=== PATIENT | female | born 1985 ===

== ENCOUNTER 2016-06-18 16:51 | Emergency (ER) | payer MEDICAID | END 2016-06-18 18:45 | disposition home or self-care (01) | LOC: H.EROB2 16:51 | DX: O26.93 Pregnancy related conditions, unspecified, third trimester (principal); Z3A.28 28 weeks gestation of pregnancy; R10.2 Pelvic and perineal pain ==

== ENCOUNTER 2016-07-13 21:30 | Emergency (ER) | payer MEDICAID ==
[2016-07-13 22:48] VITALS: BMI 27.9
[2016-07-13] MEDS ORDERED: Lactated Ringer's 1,000 ML IV SCH (23:00)
[2016-07-13 23:13] LABS: RBC URINE 3 /hpf (0-3); URINE BACTERIA RARE (<OCC); URINE BILIRUBIN NEGATIVE (NEGATIVE); URINE BLOOD NEGATIVE (NEGATIVE); URINE COLOR YELLOW (YELLOW); URINE GLUCOSE (UA) NEG (Normal); URINE KETONE NEGATIVE (NEGATIVE); URINE LEUKOCYTE ESTERASE SMALL Leu/uL (Negative); URINE PROTEIN NEGATIVE (NEGATIVE); URINE UROBILINOGEN 0.2-1.0 mg/dL (0.2-1.0); WBC URINE < 1 /hpf (0-5)
--- NOTE | 2016-07-13 23:42 | US ---
EXAM: US After First Trimester, Transabdominal CLINICAL HISTORY: 31 years old, female; Signs and symptoms; Lmp or gestational age (in weeks): 12/14/15; Antepartum complications; Other: Dec movement; ; Additional info: Decreased movments, h/o placenta previa TECHNIQUE: Real-time transabdominal obstetrical ultrasound of the maternal pelvis and a second or third trimester with image documentation. COMPARISON: No relevant prior studies available. FINDINGS: Fetus: Single live intrauterine gestation. Heart rate: heart rate of 146 beats per minute. Presentation: Cephalic. Placenta: Posterior. No placenta previa or abruption. Amniotic fluid: Normal. EMERSON = 10.5 cm. Anatomy: No gross anomaly is appreciated. BIOMETRICS Gestational age by US: Estimated gestational age of 32 weeks 4 days by measurements. EFW: Estimated weight of 1949 g. BPD: 8.2 cm, correlating with 32 weeks 6 days. HC: 29.7 cm, correlating with 32 weeks 6 days. AC: 27.8 cm, correlating with 31 weeks 6 days. FL: 6.4 cm, correlating with 32 weeks 6 days. MATERNAL: Uterus: Unremarkable. No myometrial mass. Cervix: No cervical dilatation or effacement. Free fluid: No free fluid. IMPRESSION: 1. Single live intrauterine gestation. 2. Incidental/non-acute findings are described above.
== END 2016-07-13 23:58 | disposition home or self-care (01) ==
LOC: H.EROB2 21:30
DX: O47.03 False labor before 37 completed weeks of gestation, third trimester (principal); Z3A.32 32 weeks gestation of pregnancy; O09.33 Supervision of pregnancy with insufficient antenatal care, third trimester; O44.03 Complete placenta previa NOS or without hemorrhage, third trimester

== ENCOUNTER 2016-07-29 15:23 | Emergency (ER) | payer MEDICAID ==
--- NOTE | 2016-07-29 16:08 | OBHP ---
Datetime: 07/13/2016 22:58 IP Adm Impression: , intrauterine IP Admit Plan: Observation/Evaluation Admit Comment, IP Provider: 30 YO F SABx1 @ 32.5 weeks w/ complete Grade 4 placenta previa in a previous U/S from 05/11/16 presents to the [facility] for decreased movments and new onset of b/l pel anuj pain /10, pressure like sharp in characteristic. - PT had a late start on care starting at 28 weeks - Denies LOF/VB/CTX -PMH: Hypothyroidism, Migrains. Post uterine fibroid POBHX: 2 , First child was . 1 TOP. PSH: Right foot metal plate SocHx: Smokes 2 cigg a week Meds: PNV, Synthroid 25mcg Allergies: NKDA - PPD +ve, X ray: wNL A:30 YO F SABx1 @ 32.5 weeks presents with decrease movments since afternoon and b/l pe lvic pain. P: - Lactated Ringers 1 L fluid - Continuous monitoring - OB limited U/S: EMERSON, Cervical length, R/O abruption of the placenta. - CBC. Type and screen - Counseled patient on smoking and explained the side effects on patients health and [facility] . Sushant Rios PGY-1 OB[facility] ADDENDUM: Pt seen _ examined by me. s: bilateral lower quadrant pain; denies ctxs, vag bleeding, abd trauma or pprom o: official us- posterior plac, previa not visualized. no evidence of abruption cephalic; emerson 10.5 ega 32.4wk; "no cervical dilation/effacement" i:32.4wk Abd pain most likely 2ndary to position p: d/c home ptl precautions f/u for ob appt as sched on 07/14 needs f/u appt for emerson check and confirm of plac previa resolution as above. Abdomen - PN: Normal Lungs - PN: Normal Heart - PN: Normal General - PN: Normal FHR - Baseline A Provider: 145 Contraction Comments Provider: IRREG every 10 min Comments, ACOG Physical Exam: abdomen: nt to palpation at site of discomfort Bedside US: vertex with back on maternal left EGA AdmitDate IP: 32.5 Vital Signs Provider: Reviewed; Within Normal Limits IP Chief Complaint: Maternal discomfort NICHD Variability Prov Fetus A: Moderate 6-25bpm NICHD Accel Fetus A IP Provider: 15X15 FHR Category Provider Fetus A: Category I NICHD Decel Fetus A IP Provider: None Datetime: 06/18/2016 17:20 IP Chief Complaint Other: lower pelvic pressure and bump on labia Pelvic Type - PN: Adequate Extremities - PN: Normal Back - PN: Normal Thyroid - PN: Normal Neurologic - PN: Normal HEENT - PN: Normal Gestation - Est Wks by US: 28.4 Dilatation, Provider: 0 Effacement, Provider: thick Station, Provider: high Genitourinary Exam: Normal DTRs - PN: Normal
== END 2016-07-29 17:30 | disposition home or self-care (01) ==
LOC: H.EROB2 15:23
DX: O47.03 False labor before 37 completed weeks of gestation, third trimester (principal); Z3A.32 32 weeks gestation of pregnancy; O44.03 Complete placenta previa NOS or without hemorrhage, third trimester; O09.33 Supervision of pregnancy with insufficient antenatal care, third trimester

== ENCOUNTER 2016-08-27 16:24 | Emergency (ER) | payer MEDICAID ==
--- NOTE | 2016-08-27 16:29 | OBHP ---
Datetime: 07/29/2016 16:36 IP Adm Impression: , intrauterine IP Admit Plan: Observation/Evaluation Pelvic Type - PN: Adequate Extremities - PN: Normal Abdomen - PN: Normal Back - PN: Normal Breast - PN: Normal Lungs - PN: Normal Heart - PN: Normal Thyroid - PN: Normal Neurologic - PN: Normal HEENT - PN: Normal General - PN: Normal Membranes, Provider: Intact IP Hx Assessment: The History has been Reviewed and is Current EGA AdmitDate IP: 35.0 Vital Signs Provider: Reviewed; Within Normal Limits IP Chief Complaint: Decreased movement; Maternal discomfort Dilatation, Provider: fingertip Genitourinary Exam: Normal DTRs - PN: Normal Datetime: 06/18/2016 17:20 Admit Comment, IP Provider: 30 yr at 28.4 wks GA by 1st tri US at [facility] on 01/26/16, hypoth yroid, no care, presents to [facility] with complaint of mild lower pelvic pressure and a "bump" o n her right labia when she was shaving today. Denies vaginal bleeding, LOF, ctx's, dysuria, hematuria , vaginal pruruitus. + movement. First appointment scheduled for tomorrow at [facility] (pt reports no prior care due to insurance problems) . Patient has no concerns or compla ints at this time. care/course: no care yet, 1st tri US at [facility] on 01/26/16: CRL consistent with dates of 8wks GA OBHx: at [facility] x 2 (2002,2003), 1 x TOP PMHx: Hypothyroidism, Migraines SurgHx: right foot metal plate SocHx: current smoker 4cig /week x 9yrs, denies Etoh/drugs Meds: PNV, Synthroid 25mcg Allergies: NKDA Assessment: 28 weeks gestational age with no obstetrical issues at this time. Patient incidentally found to davalos ve a yeast infection. Maternal well-being and well-being reassuring at this time. Plan: Prescription for Terazol. Patient given contact information for clinic to start care. All questions answered. Patient discharged home.
[2016-08-27 17:23] VITALS: BMI 28.7
--- NOTE | 2016-08-27 17:36 | OBHP ---
Datetime: 08/27/2016 17:30 IP Adm Impression: Term, intrauterine ; No Active Labor; Intact Membranes IP Admit Plan: Observation/Evaluation; Discharge home Admit Comment, IP Provider: 31-year-old at 38.4 weeks gestational age presents to the ED com plaining of pelvic discomfort and pressure. Patient denies any contractions, vaginal bleeding, leakag e of fluids. Patient reports good movement. Patient denies any dysuria, nausea vomiting, headac hes, fevers or chills, diarrhea or constipation. Otherwise, patient without complaints. yanci rds reviewed. Past medical history hypothyroidism Past surgical history ankle surgery Medications vitamins, Synthroid No known drug allergies Obstetrical history full-term normal spontaneous vaginal delivery 1, 36 week normal spontaneous vaginal delivery, first trimester loss of 1. Social history patient admits tobacco smoking throughout , no alcohol, recent history of THC use, patient reports she is currently in program. Physical exam: Referred physical exam findings Assessment: 31-year-old at 38 weeks gestational age. No evidence of labor at this time. Maternal well -being and well-being reassuring at this time. Plan: Check urinalysis If urinalysis negative and heart tracing remains reassuring, plan to DC home with labor prec autions and patient will follow up with clinic as already scheduled Pelvic Type - PN: Adequate Extremities - PN: Normal Abdomen - PN: Normal Back - PN: Normal Breast - PN: Normal Lungs - PN: Normal Heart - PN: Normal Thyroid - PN: Normal Neurologic - PN: Normal HEENT - PN: Normal General - PN: Normal Membranes, Provider: Intact Contraction Comments Provider: occasional Comments, ACOG Physical Exam: Cervix: Fingertip, long, high No blood, fluid, discharge Abdomen soft, nontender, nondistended, gravid No rebound, no guarding, no CVA tenderness bilaterally. Pool Provider: Negative IP Hx Assessment: The History has been Reviewed and is Current EGA AdmitDate IP: 38.4 Vital Signs Provider: Reviewed; Within Normal Limits IP Chief Complaint: Maternal discomfort Dilatation, Provider: FT Effacement, Provider: long Station, Provider: high Genitourinary Exam: Normal DTRs - PN: Normal
[2016-08-27 18:50] LABS: SQUAMOUS EPITHIAL 16 /hpf (0-5); URINE BACTERIA RARE (<OCC); URINE BILIRUBIN NEGATIVE (NEGATIVE); URINE BLOOD NEGATIVE (NEGATIVE); URINE CLARITY SLIGHTY-CLOUDY (Clear); URINE COLOR YELLOW (YELLOW); URINE GLUCOSE (UA) NEG (Normal); URINE LEUKOCYTE ESTERASE NEG Leu/uL (Negative); URINE NITRATE NEGATIVE (NEGATIVE); URINE PROTEIN NEGATIVE (NEGATIVE); URINE UROBILINOGEN 0.2-1.0 mg/dL (0.2-1.0)
== END 2016-08-27 19:40 | disposition home or self-care (01) ==
LOC: H.EROB2 16:24
DX: O47.1 False labor at or after 37 completed weeks of gestation (principal); Z3A.38 38 weeks gestation of pregnancy; O09.291 Supervision of pregnancy with other poor reproductive or obstetric history, first trimester

== ENCOUNTER 2016-08-31 14:44 | Emergency (ER) | payer MEDICAID ==
[2016-08-31 16:18] VITALS: BMI 27.1
[2016-08-31 18:05] LABS: BARBITURATES, UR NEGATIVE (NEGATIVE); BENZODIAZEPINES, UR NEGATIVE (NEGATIVE); OPIATES, UR NEGATIVE (NEGATIVE); PHENCYCLIDINE, UR NEGATIVE (NEGATIVE)
--- NOTE | 2016-08-31 20:04 | OBHP ---
Datetime: 08/31/2016 16:26 IP Adm Impression: Term, intrauterine ; No Active Labor IP Admit Plan: Observation/Evaluation Admit Comment, IP Provider: This is a 31 y/o wth 39 weeks GA, ALEXANDREA 09/07/16 by 8 week US, pre sentng for decreased movement since 2 weeks ago. GBS-POSITIVE. Pt started PNC while in third tr imester at [facility] in [facility]. Pt denes ROM, vagnal bleeding, dysura or CTX's. NKDA. Medications: Synthrod 50 mcg. (increased form 25 mcg on 07/28/16) PMHx: hypothyrodism PSH: left ankle surgery in 2012. OBHx: , 2 vagnal delveres, 1 sp. . 1st delivery was pre-term at 36 weeks due to de creased amniotic fluid. Intramural Director: Gonorrhea infection during 1st . SHx: Pt smokes 1-2 cigarettes a week, NO alcohol, last THC use on March this year. (on 07/08/16 , urine showed presence of THC). Pt currently lives alone. A_P: IUP at 41 weeks GA. Biophysical profile will be ordered. Urine toxcology screen ordered. Pt will be observed. Koko Mcwilliams PGY-1. OBH ADDENDUM: pt seen _ examined by me with dr. mcwilliams. Agree with above with following additions andmodific ations. Pt's edc established by 8wk us. She began pnc @ 30wk. DYFS is involved and pt has undergon e weekly uds with current preg. She presents today w/ c/o decreased fm for 2wks. she denies labor , ctxs, srom or bleeding. Pelvic Type - PN: Adequate Extremities - PN: Normal Abdomen - PN: Normal Back - PN: Normal Breast - PN: Normal Lungs - PN: Normal Heart - PN: Normal Thyroid - PN: Normal Neurologic - PN: Normal HEENT - PN: Normal General - PN: Normal FHR - Baseline A Provider: 140 Membranes, Provider: Intact Gestation - Est Wks by US: 41.0 Pool Provider: Negative EGA AdmitDate IP: 39.1 Vital Signs Provider: Reviewed; Within Normal Limits IP Chief Complaint: Decreased movement NICHD Variability Prov Fetus A: Moderate 6-25bpm NICHD Accel Fetus A IP Provider: 15X15 FHR Category Provider Fetus A: Category I NICHD Decel Fetus A IP Provider: None Dilatation, Provider: 2 cm Effacement, Provider: 30 Station, Provider: -3 Genitourinary Exam: Normal DTRs - PN: Normal
--- NOTE | 2016-09-01 10:36 | US ---
PROCEDURE: Biophysical profile HISTORY: Decreased Movement COMPARISON: 07/13/2016. TECHNIQUE: Standard protocol for this study/examination. FINDINGS: FINDINGS: Biophysical profile score 8/8 Based on the followin. breathing movements: 2/2 2. Gross body movement: 2/2 3. tone: 2/2 4. Qualitative amniotic fluid index: 2/2 heart rate 142 beats per minute. Closed cervix 4 cm. IMPRESSION: Biophysical profile score 8/8. Amniotic fluid index 15.3. Concordant results (preliminary interpretation) provided by [facility]. Procedure Completed: 19:03 Preliminary ([facility]) Report: Dictated and Authenticated: 20:21 Final Interpretation: 10:34. September 01, 2016.
== END 2016-08-31 21:00 | disposition home or self-care (01) ==
LOC: H.EROB2 14:44
DX: O47.1 False labor at or after 37 completed weeks of gestation (principal); Z3A.39 39 weeks gestation of pregnancy; O09.33 Supervision of pregnancy with insufficient antenatal care, third trimester; O09.213 Supervision of pregnancy with history of pre-term labor, third trimester

== ENCOUNTER 2016-09-03 06:47 | Inpatient (IN) | payer MEDICAID ==
[2016-09-03] MEDS: Lactated Ringer's 2,000 ML IV ONE ×3 (07:55→09:00)
[2016-09-03] MEDS ORDERED: Ampicillin 2 GM in Sodium Chloride 0.9% 100 ML IVPB STA (07:57)
[2016-09-03 07:58] VITALS: BMI 28.8
[2016-09-03] MEDS ORDERED: AMPicillin 1 GM in Sodium Chloride 0.9% 100 ML IVPB SCH (08:00)
[2016-09-03 08:44] LABS: BASO # 0.1 K/uL (0.0-0.2); BASO % 0.6 % (0.0-2.0); EOS # 0.1 K/uL (0.0-0.7); EOS % 1.3 % (0.0-4.0); LYMPH # 2.6 K/uL (1.0-4.3); LYMPH % 27.5 % (20.0-40.0); MEAN CELL VOLUME 83.8 fl (81.0-99.0); MEAN CORPUSCULAR HGB CONC 33.4 g/dL (33.0-37.0); MEAN PLATELET VOLUME 10.6 fl (7.2-11.7); MONO # 0.6 K/uL (0.0-0.8); MONO % 6.3 % (0.0-10.0); NEUT # 6.1 K/uL (1.8-7.0); NEUT % 64.3 % (50.0-75.0); NRBC % 0.1 % (0.0-0.0); RBC 3.95 Mil/uL (3.80-5.20); RED CELL DISTRIBUTION WIDTH 13.9 % (11.5-14.5); WHITE BLOOD COUNT 9.4 K/uL (4.8-10.8)
[2016-09-03] MEDS ORDERED: Pneumococcal 23-Valent Vaccine IM ONE (08:45)
[2016-09-03 08:47] VITALS: BP 127/90; PULSE 74; RESP 18; TEMP 98
[2016-09-03] MEDS ORDERED: Penicillin G 5 Million Unit Vial IVPB ONE ×2 (08:57→12:54)
[2016-09-03 09:02] LABS: BARBITURATES, UR NEGATIVE (NEGATIVE); BENZODIAZEPINES, UR NEGATIVE (NEGATIVE); OPIATES, UR NEGATIVE (NEGATIVE); PHENCYCLIDINE, UR NEGATIVE (NEGATIVE)
[2016-09-03] MEDS ORDERED: Fentanyl/Bupivacaine HCl 250 ML EPI ONE (09:20)
[2016-09-03] MEDS: Lactated Ringer's 1,000 ML IV SCH ×2 (11:00→19:30)
--- NOTE | 2016-09-03 16:26 | OBADHP ---
Datetime: 09/03/2016 16:23 Admit Comment, IP Provider: late entry This is a 31 y/o wth 39.4 weeks GA, ALEXANDREA 09/07/16 by 8 week US, presenting for suspected RO M carter 4:49 AM. Pt complains of pelvic CTX every 10-15 minutes and 7-8/10 intensity. GBS-POSITIVE. Pt started PNC while in third trimester at [facility] in [facility]. Pt denes ROM, vagnal bleedi ng, dysura or CTX's. NKDA. Medications: Synthrod 50 mcg. (increased form 25 mcg on 07/28/16) PMHx: hypothyrodism PSH: left ankle surgery in 2012. OBHx: , 2 vagnal deliveries, 1 sp. . 1st delivery was pre-term at 36 weeks due to decreased amniotic fluid. Cadd Technician: Gonorrhea infection during 1st . SHx: Pt smokes 1-2 cigarettes a week, NO alcohol, last THC use on March this year. (on 07/08/16 , urine showed presence of THC). Pt currently lives alone. A_P: Pt will be admitted. Labor protocol will be initiated. GBS positive. Ampicillin prophylaxis will be started. OBH ADDENDUM: pt seen _ examined by me. agree with above assessment and plan with following change- will rx pcn g for gbs prophylaxis I: 39.4wks Labor GBS+ DYFS involved P: expectant VD Datetime: 09/03/2016 08:10 Pelvic Type - PN: Adequate Extremities - PN: Normal Lungs - PN: Normal Heart - PN: Normal Thyroid - PN: Normal Neurologic - PN: Normal HEENT - PN: Normal General - PN: Normal FHR - Baseline A Provider: 150 Amniotic Fluid Color, Provider: Clear Membranes, Provider: Ruptured Comments, ACOG Physical Exam: urine drug screen neg on 08/31 Pool Provider: Positive Nitrazine Provider: Positive IP Chief Complaint: Suspected ruptured membranes NICHD Variability Prov Fetus A: Moderate 6-25bpm NICHD Accel Fetus A IP Provider: 15X15 FHR Category Provider Fetus A: Category I Dilatation, Provider: 2 Genitourinary Exam: Normal EGA AdmitDate IP: 39.4 IP Adm Impression: Term, intrauterine IP Admit Plan: Admit to unit; Initiate labor protocol Datetime: 08/31/2016 16:26 Abdomen - PN: Normal Back - PN: Normal Breast - PN: Normal Gestation - Est Wks by US: 41.0 Vital Signs Provider: Reviewed; Within Normal Limits NICHD Decel Fetus A IP Provider: None Effacement, Provider: 30 Station, Provider: -3 DTRs - PN: Normal Datetime: 08/27/2016 17:30 Contraction Comments Provider: occasional IP Hx Assessment: The History has been Reviewed and is Current Datetime: 06/18/2016 17:20 IP Chief Complaint Other: lower pelvic pressure and bump on labia
[2016-09-03] MEDS ORDERED: Oxytocin 30 units/LR 500ML 30 U/500 ML BAG IV ONE ×2 (16:39→21:00)
[2016-09-03] MEDS ORDERED: Oxytocin 30 units/LR 500ML 30 U/500 ML BAG IV SCH (16:45)
[2016-09-03] MEDS ORDERED: Oxycodone/Acetaminophen 5/325 mg Tab PO PRN (23:43)
[2016-09-04] MEDS ORDERED: Oxycodone/Acetaminophen 5/325 mg Tab PO PRN (00:52)
[2016-09-04] MEDS ORDERED: TDAP Vaccine 0.5 mL Syr IM ONE (06:30)
[2016-09-04] MEDS: Levothyroxine 25 MCG TAB PO SCH (06:44)
[2016-09-04 07:24] LABS: BASO # 0.1 K/uL (0.0-0.2); BASO % 0.3 % (0.0-2.0); EOS % 0.2 % (0.0-4.0); HEMOGLOBIN 9.8 g/dL (12.0-16.0); LYMPH # 2.3 K/uL (1.0-4.3); LYMPH % 11.3 % (20.0-40.0); MEAN CELL VOLUME 84.1 fl (81.0-99.0); MEAN CORPUSCULAR HEMOGLOBIN 27.4 pg (27.0-31.0); MEAN CORPUSCULAR HGB CONC 32.6 g/dL (33.0-37.0); MEAN PLATELET VOLUME 10.6 fl (7.2-11.7); MONO # 0.9 K/uL (0.0-0.8); MONO % 4.3 % (0.0-10.0); NEUT # 17.1 K/uL (1.8-7.0); NEUT % 83.9 % (50.0-75.0); RBC 3.57 Mil/uL (3.80-5.20); RED CELL DISTRIBUTION WIDTH 13.3 % (11.5-14.5); WHITE BLOOD COUNT 20.4 K/uL (4.8-10.8)
[2016-09-04] MEDS ORDERED: Simethicone 80 mg Chewtab PO PRN (07:55)
[2016-09-04] MEDS ORDERED: Pneumococcal 23-Valent Vaccine IM ONE (08:45)
--- NOTE | 2016-09-04 13:54 | OBPPN ---
Datetime: 09/04/2016 08:42 PP Pain Prov: Within normal limits PP Nausea Prov: Denies PP Flatus Prov: Yes PP BM Prov: No PP Heart Prov: Normal PP Lungs Prov: Normal PP Abdomen/Uterus Prov: Normal PP Lochia Prov: Normal PP Vulva/Perineum Prov: Normal PP CVA Tenderness Prov: Normal PP Extremities Prov: Normal PP Impression Prov: Normal progression PP Plan Prov: Continue present management PP Progress Note Prov: 31 y/o now seen and examined at bedside.Pt reports pain is controlled w ith pain medications. tolerating po diet well. denies nausea, vomiting, fever, chills or calf pain. assessement: 31 yo s/p , PPD#1 hypothyroidism Plan: percocet and ibuprofen for pain management continue levothyroixine 25 microgram daily Encourage and ambulatory Anticipate discharge tomorrow Addendum by Dr. Thakkar: Patient evaluated independently and I agree with the above. Patient is stab le, continue current orders Sultan Gonzalez, PGY1 Vital Signs Provider PP: Reviewed
--- NOTE | 2016-09-04 16:38 | CP.PCM.PN ---
Subjective - Date & Time of Evaluation Date of Evaluation: 09/04/16 Time of Evaluation: 16:21 - Subjective Subjective: The patient is one day post , with placement of epidural catheter for labor pain relief. At the time it was noted that dura was punctured. The patient was advised to inform the anesthesiologist on duty if headache develops. The patient was evaluated and was confirmed to have spinal headache. Blood was offered and after informing the patient of risks and benefits autologous blood patching was performed by Dr. Correia and the undesigned together with the assigned nurse. The procedure was performed under sterile condition. Sixteen ml. of autologous blood was given through the in-situ epidural catheter.Procedure was tolerated. Will follow. Objective - Vital Signs/Intake and Output Vital Signs (last 24 hours): Temp Pulse Resp BP Pulse Ox 98 F 74 18 127/90 09/03/16 08:46 09/03/16 08:46 09/03/16 08:46 09/03/16 08:46 - Medications Medications: Current Medications Acetaminophen (Tylenol 325mg Tab) 650 mg PO Q4 PRN PRN Reason: Headache Last Admin: 09/04/16 04:00 Dose: 650 mg Docusate Sodium (Colace) 100 mg PO BID [facility] Last Admin: 09/04/16 09:18 Dose: 100 mg Ibuprofen (Motrin Tab) 600 mg PO Q6 PRN PRN Reason: Pain, Mild (1-3) Last Admin: 09/04/16 14:24 Dose: 600 mg Levothyroxine Sodium (Synthroid) 25 mcg PO DAILY@0630 [facility] Last Admin: 09/04/16 06:44 Dose: 25 mcg Oxycodone/Acetaminophen (Percocet 5/325 Mg Tab) 1 tab PO Q4 PRN PRN Reason: Pain, moderate (4-7) Stop: 09/06/16 23:44 Senna/Docusate Sodium (Senokot S 50 Mg-8.6 Mg) 1 tab PO HS [facility] Simethicone (Mylicon Chew Tab) 80 mg PO TID PRN PRN Reason: Flatulence Last Admin: 09/04/16 09:19 Dose: 80 mg - Labs Labs: 09/04/16 06:10
[2016-09-04] MEDS ORDERED: Docusate-Senna 50 mg-8.6 mg Tab PO SCH (22:00)
[2016-09-05] MEDS: Levothyroxine 25 MCG TAB PO SCH (06:30)
--- NOTE | 2016-09-05 17:21 | CP.PCM.PN ---
Subjective - Date & Time of Evaluation Date of Evaluation: 09/05/16 Time of Evaluation: 17:05 - Subjective Subjective: Asked to evaluate patient for possible PDPHA. Patient is sitting at bedside and tending to the baby, but doesn't appear to be limited in any way due to pain. She complains of ears feeling like "popping." R/B/A of blood patch vs conservative therapy was discussed with the patient at length and she elected to go with conservative therapy. She was advised that if the headache is unrelenting and doesn't subside by Wednesday she may return to ER for blood patch at that time. Objective - Vital Signs/Intake and Output Vital Signs (last 24 hours): Temp Pulse Resp BP Pulse Ox 98 F 74 18 127/90 09/03/16 08:46 09/03/16 08:46 09/03/16 08:46 09/03/16 08:46 - Medications Medications: Current Medications Acetaminophen (Tylenol 325mg Tab) 650 mg PO Q4 PRN PRN Reason: Headache Last Admin: 09/05/16 02:45 Dose: 650 mg Docusate Sodium (Colace) 100 mg PO BID [facility] Last Admin: 09/04/16 16:31 Dose: 100 mg Ibuprofen (Motrin Tab) 600 mg PO Q6 PRN PRN Reason: Pain, Mild (1-3) Last Admin: 09/05/16 06:31 Dose: 600 mg Levothyroxine Sodium (Synthroid) 25 mcg PO DAILY@0630 [facility] Last Admin: 09/05/16 06:30 Dose: 25 mcg Oxycodone/Acetaminophen (Percocet 5/325 Mg Tab) 1 tab PO Q4 PRN PRN Reason: Pain, moderate (4-7) Stop: 09/06/16 23:44 Senna/Docusate Sodium (Senokot S 50 Mg-8.6 Mg) 1 tab PO HS [facility] Last Admin: 09/04/16 22:59 Dose: Not Given Simethicone (Mylicon Chew Tab) 80 mg PO TID PRN PRN Reason: Flatulence Last Admin: 09/04/16 09:19 Dose: 80 mg - Labs Labs: 09/04/16 06:10 Assessment and Plan (1) Abdominal pain during Assessment & Plan: 31 yo s/p under epidural. There was a questionable dura puncture and patient exhibits some signs of PDPHA. - continue conservative therapy - patient to go home and return for blood patch if necessary Status: Acute
--- NOTE | 2016-09-06 09:13 | OBPPN ---
Datetime: 09/05/2016 05:28 PP Pain Prov: Within normal limits PP Nausea Prov: Denies PP Flatus Prov: Yes PP BM Prov: Yes PP Heart Prov: Normal PP Lungs Prov: Normal PP Abdomen/Uterus Prov: Normal PP Lochia Prov: Normal PP Vulva/Perineum Prov: Normal PP CVA Tenderness Prov: Normal PP Extremities Prov: Normal PP Impression Prov: Normal progression PP Plan Prov: Discharge PP Progress Note Prov: 31 y/o now seen and examined at bedside.Pt reports pain is controlled w ith pain medications. Ambulating well w/o dizziness. Tolerating PO diet well. Lochia is less than men ses volume. Voiding freely with no blood noted. has +BM. denies nausea, vomiting, fever, chills or ca lf pain. assessement: 31 yo s/p , PPD#2 hypothyroidism Plan: Discharge to home today PNV 1 PO qdaily Ibuprofen 600 mg 1 tab po prn q6h for pain management, take with food. Continue levothyroixine 25 microgram daily Encourage and ambulatory Follow up at [facility] in 4-6 weeks. Sultan Lisa PGY1 Vital Signs Provider PP: Reviewed
== END 2016-09-05 18:35 | disposition home or self-care (01) | DRG 373 ==
LOC: H.EROB2 06:47 → H.EROB 06:47 → H.L&D 07:58 → H.EROB2 08:06 → H.OB/GYN 09-04 00:10
PROVIDERS: ADMIT Obstetrics & Gynecology Gynecology; ATTEND Obstetrics & Gynecology Gynecology
PROC: 10E0XZZ Delivery of Products of Conception, External Approach (ICD-10-PCS; principal; 2016-09-03)
PROC: 4A1HXCZ Monitoring of Products of Conception, Cardiac Rate, External Approach (ICD-10-PCS; 2016-09-03)
PROC: 3E0234Z Introduction of Serum, Toxoid and Vaccine into Muscle, Percutaneous Approach (ICD-10-PCS; 2016-09-04)
DX: O99.284 Endocrine, nutritional and metabolic diseases complicating childbirth (principal); E03.9 Hypothyroidism, unspecified; Z37.0 Single live birth; O89.4 Spinal and epidural anesthesia-induced headache during the puerperium; O99.824 Streptococcus B carrier state complicating childbirth; Z3A.39 39 weeks gestation of pregnancy; Z23 Encounter for immunization; Z87.891 Personal history of nicotine dependence

== ENCOUNTER 2017-05-31 18:29 | Emergency (ER) | payer MEDICAID ==
[2017-05-31 18:29] VITALS: BMI 28.8
[2017-05-31 18:36] VITALS: BP 136/86; PULSE 84; RESP 18; TEMP 97.7; O2SAT 99
== END 2017-05-31 20:00 | disposition left against medical advice (07) ==
LOC: H.ER 18:29
DX: Z02.89 Encounter for other administrative examinations (principal)

== ENCOUNTER 2017-10-06 15:54 | Emergency (ER) | payer MEDICAID ==
[2017-10-06 15:54] VITALS: BMI 28.8
[2017-10-06 15:59] VITALS: RESP 16
[2017-10-06] MEDS ORDERED: Sodium Chloride 0.9% 1,000 ML IV STA (16:36)
--- NOTE | 2017-10-06 16:50 | ED PDOC ---
HPI: Influenza Time Seen by Provider: 10/06/17 15:59 Chief Complaint: Flu-like Symptoms Chief Complaint (Provider): body aches and, sore throat History Per: Patient Exam Limitations: no limitations Onset/Duration Of Symptoms: Days (x2) Additional complaint(s):: Chapin Graves, a 32 year old female with past medical history of hypothyroidism, presents to the emergency room with body aches and pains, sore throat and feeling feverish onset 2 days ago. She reports intermittent nausea but denies vomiting or diarrhea. Patient states that she has not taken any medication for symptoms. No further medical complaints. PMD:Evin Jo Past Medical History Reviewed: Historical Data, Nursing Documentation, Vital Signs Vital Signs: Last Vital Signs Temp 98.3 F 10/06/17 15:58 Pulse 97 H 10/06/17 15:58 Resp 16 10/06/17 15:58 BP 136/84 10/06/17 15:58 Pulse Ox 98 10/06/17 15:58 - Medical History PMH: Hypothyroidism Denies: Back Problems - Surgical History Surgical History: No Surg Hx - Family History Family History: States: Unknown Family Hx - Immunization History Hx Tetanus Toxoid Vaccination: No Hx Influenza Vaccination: No Hx Pneumococcal Vaccination: No - Home Medications Home Medications: Ambulatory Orders Medication Instructions Recorded Vit Calc,Iron,Folic 1 each PO DAILY #30 tablet 01/26/16 [ Vitamins] Ibuprofen [Motrin Tab] 600 mg PO Q6 PRN #30 tab 09/05/16 Levothyroxine [Synthroid] 25 mcg PO DAILY@0630 #30 tab 09/05/16 Ibuprofen [Motrin] 600 mg PO Q6 #20 tab 10/06/17 - Allergies Allergies/Adverse Reactions: Allergies Allergy/AdvReac Type Severity Reaction Status Date / Time No Known Allergies Allergy Verified 10/06/17 15:58 Review of Systems ROS Statement: Except As Marked, All Systems Reviewed And Found Negative Constitutional: Positive for: Fever, Other (body aches and pains) ENT: Positive for: Throat Pain Gastrointestinal: Positive for: Nausea. Negative for: Vomiting, Diarrhea Physical Exam - Reviewed Nursing Documentation Reviewed: Yes Vital Signs Reviewed: Yes - Physical Exam Appears: Positive for: Non-toxic, No Acute Distress Head Exam: Positive for: ATRAUMATIC, NORMAL INSPECTION, NORMOCEPHALIC Skin: Positive for: Normal Color, Warm, DRY Eye Exam: Positive for: EOMI, Normal appearance, PERRL ENT: Positive for: Normal ENT Inspection Neck: Positive for: Normal, Painless ROM Cardiovascular/Chest: Positive for: Regular Rate, Rhythm Respiratory: Positive for: Normal Breath Sounds. Negative for: Respiratory Distress Gastrointestinal/Abdominal: Positive for: Normal Exam, Soft Back: Positive for: Normal Inspection Extremity: Positive for: Normal ROM (upper and lower) Neurologic/Psych: Positive for: Alert, Oriented Medical Decision Making Medical Decision Making: Time: 15:59 Initial Impression: body aches and pains, sore throat, feeling feverish Initial Plan: --CMP --CBC w/ differential --Sodium Chloride 1000 ml IV 999 mls/hr --Toradol 30 mg IVP --Zofran 4 mg IV --Rapid strep test Scribe Attestation: Documented by Chantelle Garcia, acting as a scribe for GANGA Pisano. Provider Scribe Attestation: All medical record entries made by the Scribe were at my direction and personally dictated by me. I have reviewed the chart and agree that the record accurately reflects my personal performance of the history, physical exam, medical decision making, and the department course for this patient. I have also personally directed, reviewed, and agree with the discharge instructions and disposition. - Laboratory Results Result Diagrams: 10/06/17 16:37 10/06/17 16:37 - ECG O2 Sat by Pulse Oximetry: 98 Disposition - Clinical Impression Clinical Impression: Viral syndrome - Patient ED Disposition Is Patient to be Admitted: No - Disposition Disposition: Routine/Home Disposition Time: 17:00 Condition: STABLE Prescriptions: Ibuprofen [Motrin] 600 mg PO Q6 #20 tab Instructions: Viral Syndrome (DC) Forms: Asterisk (Syriac)
[2017-10-06 17:46] LABS: BASO # 0.1 K/uL (0.0-0.2); BASO % 0.7 % (0.0-2.0); EOS # 0.1 K/uL (0.0-0.7); EOS % 1.3 % (0.0-4.0); HEMOGLOBIN 12.8 g/dL (12.0-16.0); LYMPH # 1.7 K/uL (1.0-4.3); LYMPH % 15.8 % (20.0-40.0); MEAN CELL VOLUME 90.8 fl (81.0-99.0); MEAN CORPUSCULAR HEMOGLOBIN 29.8 pg (27.0-31.0); MEAN CORPUSCULAR HGB CONC 32.8 g/dL (33.0-37.0); MEAN PLATELET VOLUME 9.7 fl (7.2-11.7); MONO # 0.7 K/uL (0.0-0.8); NEUT # 8.4 K/uL (1.8-7.0); NEUT % 76.2 % (50.0-75.0); RBC 4.3 Mil/uL (3.80-5.20); RED CELL DISTRIBUTION WIDTH 14.6 % (11.5-14.5)
[2017-10-06 18:32] LABS: ALB/GLOB RATIO 1.2 (1.0-2.1); ALBUMIN 3.9 g/dL (3.5-5.0); ALT/SGPT 19 U/L (9-52); AST/SGOT 29 U/L (14-36); BLOOD UREA NITROGEN 12 mg/dl (7-17); CALCIUM 8.6 mg/dL (8.4-10.2); GFR NON-AFRICAN AMERICAN > 60
[2017-10-06 19:27] VITALS: BP 137/80; PULSE 74; TEMP 98.4
[2017-10-24 10:37] VITALS: O2SAT 98
== END 2017-10-06 19:27 | disposition home or self-care (01) ==
LOC: H.ER 15:54
DX: J11.1 Influenza due to unidentified influenza virus with other respiratory manifestations (principal); E03.9 Hypothyroidism, unspecified
CPT/HCPCS: 80053; 81025; 85025; 87070; 87430; 96361; 96374; 96375; 99283; J1885; J2405; J7030